=== PATIENT | female | born 1950 | race Caucasian/White ===

== ENCOUNTER 2023-01-21 22:31 | Emergency (ER) | payer OTHER ==
[~2023-01-21] VITALS: Ht 162.6 cm; Wt 57.2 kg
[2023-01-21] MEDS ORDERED: AMOX/CLAVULANATE 875 MG TABLET PO ONE (23:00)
[2023-01-21] MEDS ORDERED: ACETAMINOPHEN ES 500 MG TABLET PO ONE (23:00)
[2023-01-21] MEDS ORDERED: ACETAMINOPHEN ES 500 MG TABLET ONE (23:48)
[2023-01-21] MEDS ORDERED: AMOX/CLAVULANATE 875 MG TABLET ONE (23:48)
[2023-01-22] MEDS ORDERED: AMOX-430 PO (00:04)
[2023-01-22 00:46] VITALS: BP 145/69; TEMP 98; O2SAT 98
== END 2023-01-22 00:46 | disposition home or self-care (01) ==
LOC: ER 22:38
DX: S01.23XA Puncture wound without foreign body of nose, initial encounter (principal); W54.0XXA Bitten by dog, initial encounter; Y93.89 Activity, other specified; Y92.89 Other specified places as the place of occurrence of the external cause; Y99.8 Other external cause status
CPT/HCPCS: 12011; 99283; A6403